=== PATIENT | female | born 2000 | race Caucasian/White ===

== ENCOUNTER 2023-03-11 14:57 | Outpatient (REF) | payer OTHER, SELFPAY ==
[2023-03-14 19:23] LABS: Lamotrigine Lamictal 7.1 mcg/mL (2.5-15.0)
== END 2023-03-11 14:58 | disposition home or self-care (01) ==
LOC: HO.LAB 14:57
PROVIDERS: Visit Provider Psychiatry & Neurology Neurology
DX: G40.909 Epilepsy, unspecified, not intractable, without status epilepticus (principal)
CPT/HCPCS: 36415; 80175; 80177